=== PATIENT | male | born 1985 | race Caucasian/White ===

== ENCOUNTER 2017-03-01 15:20 | Emergency (ER) | payer OTHER ==
[~2017-03-01] VITALS: Ht 157.5 cm; Wt 72.6 kg
[~2017-03-01 15:20] MED LIST: AUGMENTIN 500-1 EACH PO; AZITHROMYCIN 2250 MG PO; BENTYL20 MG PO; CATAPRES0.1 MG PO; FLEXERIL; HYDROXYZINE HCL25 M1 PO; IBUPROFEN 600600 M1 PO; IBUPROFEN 800800 M1 PO; IBUPROFEN 800800 MG PO; MEDROLDOSEPACK PO; NAPROSYN500 MG PO; NOHOMEMEDICATIONS; NORCO 5-325 TA1 EACH PO; NORFLEX100 MG PO; PENICILLIN VK250 MG PO; PENICILLIN VK500 M1 PO; PERMETHRIN60 GM TOP; PROAIR HFA8.5 GM IH; PROVENTIL HFA6.7 G1 INH; RONDEC-DM SYRU120 ML PO; SUBOXONE 4 MG-1 EACH SL; TESSALON200 MG PO; ULTRAM 50MG TAB50 MG PO; VENTOLIN HFA 1818 GM INH; VICODIN 5-5001 EACH PO; ZPAK PO
[2017-03-01 16:02] VITALS: BP 109/75
== END 2017-03-01 16:04 | disposition home or self-care (01) ==
LOC: M.ERS 15:20
DX: F41.9 Anxiety disorder, unspecified (principal); F15.10 Other stimulant abuse, uncomplicated; F17.210 Nicotine dependence, cigarettes, uncomplicated

== ENCOUNTER 2018-09-10 16:25 | Emergency (ER) | payer OTHER ==
[~2018-09-10] VITALS: Ht 157.5 cm; Wt 59.0 kg
[2018-09-10] MEDS ORDERED: DILANTIN100 MG PO (16:34)
[2018-09-10 16:54] LABS: ABSOLUTE BASOPHILS 0.1 thou/uL (0.0-0.2); ABSOLUTE EOSINOPHILS 0.1 thou/uL (0.0-0.7); ABSOLUTE LYMPHOCYTES 2.2 thou/uL (0.8-5.3); ABSOLUTE MONOCYTES 0.4 thou/uL (0.0-1.2); ABSOLUTE NEUTROPHILS 3.2 thou/uL (1.6-8.1); BASOPHILS 1.4 %; EOSINOPHILS 2.1 %; HEMATOCRIT 46.4 % (42.0-52.0); HEMOGLOBIN 15.5 gm/dL (14.0-18.0); LYMPHOCYTES 36.4 %; MCH 31.2 pg (26.0-34.0); MCHC 33.4 g/dL (28.0-37.0); MCV 93.4 fL (80.0-100.0); MONOCYTES 7.2 %; MPV 8.2 fl. (7.2-11.1); NUCLEATED RBCS 0 /100WBC; PLATELET COUNT* 250 thou/uL (150-400); POLYS 52.9 %; RBC 4.97 mil/uL (4.50-6.00); RDW-CV 14.2 % (10.5-14.5)
[2018-09-10 17:02] LABS: ANION GAP 9 mmol/L (7-16); BUN 12 mg/dL (7-18); CALCIUM 9.1 mg/dL (8.5-10.1); CHLORIDE 101 mmol/L (98-107); CO2 29 mmol/L (21-32); CREATININE 0.8 mg/dL (0.6-1.3); GLUCOSE 99 mg/dL (70-99); POTASSIUM 3.9 mmol/L (3.5-5.1); SODIUM 139 mmol/L (136-145)
[2018-09-10 17:07] LABS: SALICYLATE < 2.8 mg/dL (2.8-20.0)
[2018-09-10 17:09] LABS: ACETAMINOPHEN < 2 ug/mL (10-30); ALCOHOL < 10 mg/dL (<10)
[2018-09-10 17:15] LABS: ALKALINE PHOSPHATASE 70 U/L (46-116); SGOT 18 U/L (15-37); SGPT 42 U/L (30-65); TOTAL BILIRUBIN 0.2 mg/dL (<0.1-1.0); TOTAL PROTEIN 7.5 g/dL (6.4-8.2); TROPONIN-I LEVEL <0.06 ng/mL (<0.06)
[2018-09-10 18:14] LABS: URINE BILIRUBIN NEGATIVE (Negative); URINE BLOOD NEGATIVE (Negative); URINE CLARITY CLEAR; URINE COLOR YELLOW; URINE GLUCOSE-RANDOM NEGATIVE (Negative); URINE KETONES NEGATIVE (Negative); URINE LEUKOCYTES-REFLEX NEGATIVE (Negative); URINE NITRITE-REFLEX NEGATIVE (Negative); URINE PROTEIN NEGATIVE (Negative); URINE SPECIFIC GRAVITY 1.015 (1.005-1.030); URINE UROBILINOGEN 0.2 E.U./dl (0.2-1.0)
[2018-09-10 18:21] LABS: AMP/METHAMP Negative (Negative); BARBITURATES Negative (Negative); BENZODIAZEPINES Negative (Negative); COCAINE Negative (Negative); METHADONE Negative (Negative); OPIATES Negative (Negative); PCP Negative (Negative); THC Negative (Negative)
[2018-09-10 21:39] VITALS: BP 102/51
--- NOTE | 2018-09-12 16:53 | EKG ---
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1985 Requested By: Vianey Moise Order Number: [id number] MD: Tyler Hart Measurements Intervals [place] Rate: 61 P: 55 DE: 153 QRS: 54 QRSD: 113 T: 58 QT: 419 QTc: 422 Interpretive Statements Sinus rhythm Incomplete right bundle branch block ST elev, probable normal early repol pattern Compared to ECG 08/04/2009 19:55:32 ST (T wave) deviation now present Wandering atrial pacemaker no longer present Atrial-paced complex(es) or rhythm no longer present Left ventricular hypertrophy no longer present Electronically Signed On 09-12-2018 16:53:24 CDT by Tyler Hart [email or web address] <ELECTRONICALLY SIGNED> By: Tyler Hart MD, FACC 09/12/18 1653 1630 1630 Tyler Hart MD, FACC /EPI
== END 2018-09-10 21:54 ==
LOC: M.ERS 16:25
PROVIDERS: Nurse Practitioner Family
DX: R45.851 Suicidal ideations (principal); R07.89 Other chest pain; R20.0 Anesthesia of skin; F17.210 Nicotine dependence, cigarettes, uncomplicated; F11.10 Opioid abuse, uncomplicated; F15.10 Other stimulant abuse, uncomplicated

== ENCOUNTER 2020-10-21 22:12 | Emergency (ER) | payer OTHER ==
[~2020-10-21] VITALS: Ht 160 cm; Wt 59.0 kg
[~2020-10-21 22:12] MED LIST changes: +DILANTIN100 MG PO
[2020-10-22] MEDS ORDERED: HYDROCODON-ACE1 EAC7 PO (00:49)
[2020-10-22] MEDS ORDERED: AUGMENTIN 500-1 EACH PO (00:49)
[2020-10-22 01:30] VITALS: BP 120/69
== END 2020-10-22 01:30 | disposition home or self-care (01) ==
LOC: M.ERS 22:12
DX: S02.40CA Maxillary fracture, right side, initial encounter for closed fracture (principal); S02.31XA Fracture of orbital floor, right side, initial encounter for closed fracture; S02.831A Fracture of medial orbital wall, right side, initial encounter for closed fracture; F17.210 Nicotine dependence, cigarettes, uncomplicated; Z98.890 Other specified postprocedural states; Y04.2XXA Assault by strike against or bumped into by another person, initial encounter; Y93.89 Activity, other specified; Y92.89 Other specified places as the place of occurrence of the external cause; Y99.8 Other external cause status